=== PATIENT | male | born 1985 | race Caucasian/White ===

== ENCOUNTER 2020-08-04 13:48 | Emergency (ER) | payer BC ==
--- NOTE | 2020-08-04 14:06 | EDM.PDOC ---
ED HPI GENERAL MEDICAL PROBLEM - General Chief Complaint: Trauma Stated Complaint: HEAD INJURY/SCRAPES/CUTS Time Seen by Provider: 08/04/20 13:58 Source of Information: Reports: Patient History Limitations: Reports: No Limitations - History of Present Illness INITIAL COMMENTS - FREE TEXT/NARRATIVE: The patient presents with a head injury. He was riding horse today and was pepe ed off. He hit his head and got up right away. He cannot remember 10 to 15 minutes after the fall. He has a headache and large abrasion to the left parietal region. He has no neck pain, chest pain, abdominal pain, arm or hip pain. He does have an abrasion to the left knee. He has no medical problems. Onset: Sudden Duration: Hour(s): (1.5) Location: Reports: Head Quality: Reports: Sharp Severity: Moderate Improves with: Reports: None Worsens with: Reports: None Associated Symptoms: Reports: Headaches. Denies: Chest Pain, Cough, Fever/Chills, Nausea/Vomiting, Shortness of Breath Headache Pain Score (Numeric/FACES): 5 - Related Data Allergies Allergy/AdvReac Type Severity Reaction Status Date / Time aspirin Allergy Swelling Verified 08/04/20 13:58 Home Meds: Home Meds . [No Known Home Meds] 08/04/20 [History] Past Medical History Neurological History: Reports: Migraines - Infectious Disease History Infectious Disease History: Reports: Chicken Pox Social & Family History - Tobacco Use Tobacco Use Status *Q: Never Tobacco User - Caffeine Use Caffeine Use: Reports: Coffee - Recreational Drug Use Recreational Drug Use: No Review of Systems - Review of Systems Review Of Systems: See Below Constitutional: Reports: No Symptoms Eyes: Reports: No Symptoms Ears: Reports: No Symptoms Nose: Reports: No Symptoms Mouth/Throat: Reports: No Symptoms Respiratory: Reports: No Symptoms Cardiovascular: Reports: No Symptoms GI/Abdominal: Reports: No Symptoms Genitourinary: Reports: No Symptoms Musculoskeletal: Reports: No Symptoms Skin: Reports: No Symptoms Neurological: Reports: Headache ED EXAM, GENERAL - Physical Exam Exam: See Below Exam Limited By: No Limitations General Appearance: Alert, No Apparent Distress Ears: Normal External Exam Nose: Normal Inspection Head: Other (Large abrasion to the left parietal region) Neck: Normal Inspection, Supple, Non-Tender Respiratory/Chest: No Respiratory Distress, Lungs Clear, Normal Breath Sounds Cardiovascular: Regular Rate, Rhythm, No Edema, No Murmur GI/Abdominal: Soft, Non-Tender, No Organomegaly, No Mass Back Exam: Normal Inspection Extremities: Other (Abrasion and mild pain upon palpation to the left knee) Neurological: Alert, Oriented, No Motor/Sensory Deficits Course - Vital Signs Last Recorded V/S: Last Vital Signs Temp 97.4 F 08/04/20 13:56 Pulse 68 08/04/20 14:58 Resp 16 08/04/20 14:58 BP 123/80 08/04/20 14:58 Pulse Ox 98 08/04/20 14:58 - Re-Assessments/Exams Free Text/Narrative Re-Assessment/Exam: 08/04/20 14:08 I have ordered a CT of his head. 08/04/20 15:[address] of his head looks good. I will discharge him home. Departure - Departure Time of Disposition: 15:05 Disposition: Home, Self-Care 01 Condition: Good Clinical Impression: Abrasion Fall Qualifiers: Encounter type: initial encounter Qualified Code(s): W19.XXXA - Unspecified fall, initial encounter Concussion Qualifiers: Encounter type: initial encounter Loss of consciousness presence/duration: without LOC Qualified Code(s): S06.0X0A - Concussion without loss of consciousness, initial encounter - Discharge Information *PRESCRIPTION DRUG MONITORING PROGRAM REVIEWED*: Not Applicable *COPY OF PRESCRIPTION DRUG MONITORING REPORT IN PATIENT DAISY: Not Applicable Referrals: PCP,None [Primary Care Provider] - Forms: ED Department Discharge Additional Instructions: Wash the abrasion on your head 2 times per day with warm soapy water and apply antibiotic ointment after. Please return if you are worse such as more of a headache, confusion, numbness or weakness. Sepsis Event Note (ED) - Evaluation Sepsis Screening Result: No Definite Risk - Focused Exam Vital Signs: Vital Signs Temp Pulse Resp BP Pulse Ox 08/04/20 14:58 68 16 123/80 98 08/04/20 13:56 97.4 F 62 16 96 08/04/20 13:55 97.4 F 62 16 152/92 H 99
--- NOTE | 2020-08-04 14:44 | CT ---
Head CT Technique: Multiple axial sections through the brain were obtained. Intervenous contrast was not utilized. Comparison: No previous intracranial imaging is available. Findings: Ventricles along with basal cisterns and sulci over the convexities are within normal limits for the patient's age. No abnormal parenchymal densities are seen. No evidence of intracranial hemorrhage. No midline shift or mass-effect is appreciated. Bone window settings were reviewed. Visualized paranasal sinuses and mastoid sinuses show nothing acute. No acute calvarial finding is seen. Impression: 1. Nothing acute is seen on noncontrast head CT study. Diagnostic code #1
[2020-08-04 14:59] VITALS: BP 123/80; PULSE 68
== END 2020-08-04 15:09 | disposition home or self-care (01) ==
LOC: JD.ED 13:48
DX: S06.0X0A Concussion without loss of consciousness, initial encounter (principal); S80.212A Abrasion, left knee, initial encounter; S00.01XA Abrasion of scalp, initial encounter; Z88.6 Allergy status to analgesic agent; W55.12XA Struck by horse, initial encounter
CPT/HCPCS: 70450; 70450-26; 99283; 99284-25